=== PATIENT | female | born 1980 | race Hispanic/Latino ===

== ENCOUNTER 2023-11-05 03:26 | Inpatient (IN) | payer OTHER ==
[~2023-11-05] VITALS: Ht 160 cm; Wt 90.7 kg
[2023-11-05] MEDS: MORPHINE 2 MG SYG IVP ONE (04:06)
[2023-11-05] MEDS: ONDANSETRON 4MG INJ IVP ONE (04:06)
[2023-11-05 05:11] LABS: CREATININE 0.9 mg/dL (0.5-1.0); POTASSIUM 3.6 mmol/L (3.5-5.1)
[2023-11-05 05:15] LABS: BASOPHILS # (AUTO) 0.02 K/uL (0.00-0.20); BASOPHILS % (AUTO) 0.3 % (0.0-5.0); EOSINOPHILS # (AUTO) 0.01 K/uL (0.00-0.70); EOSINOPHILS % (AUTO) 0.2 % (0.0-8.0); IMMATURE GRANULOCYTE ABSOLUTE 0.02 K/uL (0-1); LYMPHOCYTES # (AUTO) 1.1 K/uL (1.0-4.8); LYMPHOCYTES % (AUTO) 18.8 % (21.0-51.0); MEAN CORPUSCULAR HEMOGLOBIN 30.4 pg (27.0-33.0); MEAN CORPUSCULAR VOLUME 86.8 fL (79-99); MONOCYTES # (AUTO) 0.4 K/uL (0.1-1.0); MONOCYTES % (AUTO) 6.1 % (3.0-13.0); NEUTROPHILS # (AUTO) 4.4 K/uL (1.8-7.7); NEUTROPHILS % (AUTO) 74.3 % (40.0-77.0); PLATELET COUNT (AUTO) 301 K/uL (130-400); RED BLOOD CELL COUNT(AUTO) 4.84 MIL/uL (4.00-5.50); RED CELL DISTRIBUTION WIDTH 11.8 % (11.0-15.5); WHITE BLOOD COUNT (AUTO) 5.9 K/uL (4.8-10.8)
[2023-11-05 05:17] LABS: BILIRUBIN,TOTAL 0.6 mg/dL (0.2-1.0)
[2023-11-05] MEDS: 0.9%NACL 1000ML 1,000 ML IV ONE (06:37)
[2023-11-05] MEDS: MORPHINE 2 MG SYG ONE (08:17)
[2023-11-05] MEDS: MORPHINE 4 MG SYG IVP ONE (08:18)
[2023-11-05] MEDS: ZOSYN 3.375GM+NS 50ML 50 ML ONE (09:38)
[2023-11-05] MEDS: ZOSYN 3.375GM +NS 50ML IV ONE (09:38)
[2023-11-05] MEDS ORDERED: ACETAMINOPHEN 325 MG TAB PO PRN ×2 (10:30)
[2023-11-05] MEDS: ZOSYN 3.375GM+NS 50ML 50 ML IV SCH (10:35)
[2023-11-05] MEDS: 0.9%NACL 1000ML 1,000 ML IV SCH (10:36)
[2023-11-05 11:30] VITALS: O2SAT 97
[2023-11-05] MEDS: ONDANSETRON 4MG INJ IV PRN (12:37)
[2023-11-05] MEDS ORDERED: HYDROMORPHONE 2 MG VIAL (2MG/ML) IVP PRN (13:00)
[2023-11-05] MEDS: MORPHINE 2 MG SYG IM PRN (13:11)
[2023-11-05 16:10] VITALS: BP 114/57; PULSE 66; RESP 18
[2023-11-05] MEDS ORDERED: KCL 20 MEQ ERTAB PO PRN (17:00)
[2023-11-05] MEDS ORDERED: POTASSIUM CHLORIDE 20MEQ/100ML 100 ML IV PRN (17:00)
[2023-11-05] MEDS ORDERED: POTASSIUM CHLORIDE 10% ELIXIR 20 MEQ/15 ML UDCUP PO PRN (17:00)
[2023-11-05] MEDS: POTASSIUM CHLORIDE 20MEQ/100ML 100 ML IV PRN (17:43)
[2023-11-05] MEDS: PANTOPRAZOLE 40 MG/VIAL IVP SCH (19:51)
[2023-11-05 20:00] VITALS: BP 113/68; PULSE 70; RESP 18
[2023-11-05 21:38] VITALS: O2SAT 98
[2023-11-06] VITALS (9 sets, daily range): BP systolic 108–139; BP diastolic 55–76; PULSE 64–76; RESP 18–20; O2SAT 97–99
[2023-11-06 06:08] LABS: BASOPHILS # (AUTO) 0.02 K/uL (0.00-0.20); BASOPHILS % (AUTO) 0.4 % (0.0-5.0); EOSINOPHILS # (AUTO) 0.08 K/uL (0.00-0.70); EOSINOPHILS % (AUTO) 1.7 % (0.0-8.0); HEMATOCRIT 37.8 % (36-48); IMMATURE GRANULOCYTE ABSOLUTE 0.01 K/uL (0-1); LYMPHOCYTES # (AUTO) 2.2 K/uL (1.0-4.8); LYMPHOCYTES % (AUTO) 46.4 % (21.0-51.0); MEAN CORPUSCULAR HEMOGLOBIN 29.9 pg (27.0-33.0); MEAN CORPUSCULAR HGB CONC 34.1 g/dL (32.0-36.0); MEAN CORPUSCULAR VOLUME 87.5 fL (79-99); MONOCYTES # (AUTO) 0.4 K/uL (0.1-1.0); MONOCYTES % (AUTO) 8.6 % (3.0-13.0); NEUTROPHILS % (AUTO) 42.7 % (40.0-77.0); PLATELET COUNT (AUTO) 223 K/uL (130-400); RED BLOOD CELL COUNT(AUTO) 4.32 MIL/uL (4.00-5.50); RED CELL DISTRIBUTION WIDTH 11.8 % (11.0-15.5); WHITE BLOOD COUNT (AUTO) 4.8 K/uL (4.8-10.8)
[2023-11-06 06:18] LABS: CREATININE 0.8 mg/dL (0.5-1.0); POTASSIUM 3.5 mmol/L (3.5-5.1)
[2023-11-06] MEDS ORDERED: MORPHINE 2 MG SYG IV PRN (07:00)
[2023-11-07] VITALS (18 sets, daily range): BP systolic 113–146; BP diastolic 59–118; PULSE 56–87; RESP 15–19; O2SAT 98
[2023-11-07 05:37] LABS: MEAN CORPUSCULAR HEMOGLOBIN 30.6 pg (27.0-33.0); MEAN CORPUSCULAR HGB CONC 34.9 g/dL (32.0-36.0); MEAN CORPUSCULAR VOLUME 87.6 fL (79-99); RED BLOOD CELL COUNT(AUTO) 4.68 MIL/uL (4.00-5.50); RED CELL DISTRIBUTION WIDTH 11.4 % (11.0-15.5); WHITE BLOOD COUNT (AUTO) 4.8 K/uL (4.8-10.8)
[2023-11-07 05:56] LABS: CREATININE 0.7 mg/dL (0.5-1.0); POTASSIUM 3.6 mmol/L (3.5-5.1)
[2023-11-07] MEDS ORDERED: PROPOFOL 10 MG/ML 20ML VIAL IV ONE (12:09)
== END 2023-11-07 16:30 | disposition home or self-care (01) | DRG 446 ==
LOC: EDH 03:26 → EDHIP 10:02 → 3CH 11:30
PROVIDERS: ADMIT Internal Medicine; ATTEND Internal Medicine
PROC: 0DB58ZX Excision of Esophagus, Via Natural or Artificial Opening Endoscopic, Diagnostic (ICD-10-PCS; principal; 2023-11-07)
PROC: 0DB68ZX Excision of Stomach, Via Natural or Artificial Opening Endoscopic, Diagnostic (ICD-10-PCS; 2023-11-07)
DX: K80.70 Calculus of gallbladder and bile duct without cholecystitis without obstruction (principal); E66.9 Obesity, unspecified; Z68.35 Body mass index [BMI] 35.0-35.9, adult; K29.70 Gastritis, unspecified, without bleeding; Z90.710 Acquired absence of both cervix and uterus; Z98.891 History of uterine scar from previous surgery
CPT/HCPCS: 36415; 43239; 76700; 78226; 80048; 80053; 82150; 83690; 85025; 85027; 93005; 96365; 96375; A4606; A9537; C9113; G0378; J2270; J2405; J2543; J2704; J3480; A4215; A4221; A4222; A4223; A4620; A4663; A7002; J3490

== ENCOUNTER 2024-02-06 06:24 | Day surgery (SDC) | payer OTHER ==
[2024-02-04 09:23] VITALS: BP 123/72; PULSE 85; RESP 16; TEMP 98
[2024-02-04 09:39] LABS: BASOPHILS # (AUTO) 0.04 K/uL (0.00-0.20); BASOPHILS % (AUTO) 0.7 % (0.0-5.0); EOSINOPHILS # (AUTO) 0.11 K/uL (0.00-0.70); EOSINOPHILS % (AUTO) 1.9 % (0.0-8.0); HEMATOCRIT 42.2 % (36-48); IMMATURE GRANULOCYTE ABSOLUTE 0.02 K/uL (0-1); LYMPHOCYTES # (AUTO) 1.8 K/uL (1.0-4.8); LYMPHOCYTES % (AUTO) 30.1 % (21.0-51.0); MEAN CORPUSCULAR HEMOGLOBIN 29.9 pg (27.0-33.0); MEAN CORPUSCULAR HGB CONC 33.6 g/dL (32.0-36.0); MEAN CORPUSCULAR VOLUME 88.8 fL (79-99); MONOCYTES # (AUTO) 0.4 K/uL (0.1-1.0); MONOCYTES % (AUTO) 6.2 % (3.0-13.0); NEUTROPHILS # (AUTO) 3.5 K/uL (1.8-7.7); NEUTROPHILS % (AUTO) 60.8 % (40.0-77.0); PLATELET COUNT (AUTO) 288 K/uL (130-400); RED BLOOD CELL COUNT(AUTO) 4.75 MIL/uL (4.00-5.50); RED CELL DISTRIBUTION WIDTH 11.7 % (11.0-15.5); WHITE BLOOD COUNT (AUTO) 5.8 K/uL (4.8-10.8)
[2024-02-04 09:48] LABS: CREATININE 0.9 mg/dL (0.5-1.0); POTASSIUM 3.7 mmol/L (3.5-5.1)
[~2024-02-06] VITALS: Ht 160 cm; Wt 95.7 kg
[2024-02-06] VITALS (18 sets, daily range): BP systolic 97–135; BP diastolic 48–78; PULSE 59–85; RESP 14–20; TEMP 97.2–98.1
[2024-02-06] MEDS ORDERED: LACTATED RINGERS 1000ML 1,000 ML IV ONE (06:29)
[2024-02-06] MEDS ORDERED: acetaMINOPHEN 1,000 MG/100 ML VIAL IV ONE (07:03)
[2024-02-06] MEDS ORDERED: FAMOTIDINE 20MG VIAL IV ONE (07:03)
[2024-02-06] MEDS ORDERED: ketaMINE 50MG/ML SYRINGE 50 MG/ML DISP.SYRIN ONE (07:05)
[2024-02-06] MEDS ORDERED: LIDOCAINE PF 100MG/5ML (2%) SYRINGE 5ML ONE (07:11)
[2024-02-06] MEDS ORDERED: rocuRONium bROMide 10MG/1ML 5ML VL ONE ×2 (07:11→09:09)
[2024-02-06] MEDS ORDERED: LIDOCAINE HCL MPF 1% 5ML VIAL ONE (07:11)
[2024-02-06] MEDS ORDERED: proPOFol 10 MG/ML 20ML VIAL IV ONE (07:11)
[2024-02-06] MEDS ORDERED: FENTanyl CITRate PF 50 MCG/1 ML 2ML VIAL ONE (07:12)
[2024-02-06] MEDS ORDERED: INDOCYANINE GREEN 25 MG VIAL IJ ONE (07:37)
[2024-02-06] MEDS ORDERED: ondanSETRON 4MG INJ ONE (08:14)
[2024-02-06] MEDS ORDERED: dexaMETHasone SOD PHOSPHATE 10MG/ML 1ML VIAL ONE (08:14)
[2024-02-06] MEDS: ceFAZolin SODIUM 2 GM VIAL ONE (08:15)
[2024-02-06] MEDS: BUPIvacaine/PF 0.5% 30ML VIAL ONE (08:44)
[2024-02-06] MEDS ORDERED: GLYCOPYRROLATE 0.2 MG/ML 5 ML VIAL ONE (08:55)
[2024-02-06] MEDS ORDERED: NEOSTIGMINE METHYLSULFATE 1MG/ML IV ONE (08:55)
[2024-02-06] MEDS: MEPERIDINE-PF 25 MG/ML SYG ONE ×2 (10:02→10:10)
[2024-02-06] MEDS: ondanSETRON 4MG INJ ONE (10:14)
[2024-02-06] MEDS: ketOROlac 30MG VIAL (30MG/ML) ONE (12:10)
[2024-02-06] MEDS: ketOROlac 30MG VIAL (30MG/ML) IVP ONE (12:22)
== END 2024-02-06 13:50 | disposition home or self-care (01) ==
LOC: DAH 06:24
PROVIDERS: ATTEND Surgery
DX: K80.10 Calculus of gallbladder with chronic cholecystitis without obstruction (principal); K21.9 Gastro-esophageal reflux disease without esophagitis; K29.70 Gastritis, unspecified, without bleeding; E66.01 Morbid (severe) obesity due to excess calories; Z90.710 Acquired absence of both cervix and uterus; Z68.36 Body mass index [BMI] 36.0-36.9, adult; Z79.899 Other long term (current) drug therapy
CPT/HCPCS: 47563; S2900; 36415; 80048; 85025; 86850; 86900; 86901; 88304; J1100; J1885; J2001; J2175; J2405; J2704; J2710; J3010; J3490; J7030; J7120; A4213; A4215; A4216; A4221; A4222; A4223; A4600; A4657; A4663; A4930; A6260; J0665; J0690